=== PATIENT | female | born 1955 | race Caucasian/White ===

== ENCOUNTER 2016-09-03 18:43 | Emergency (ER) | payer BC ==
[2016-09-03 19:35] VITALS: BP 135/57
--- NOTE | 2016-09-03 20:28 | UC ---
Throat Pain/Nasal Mihai HPI - HPI Summary HPI Summary: pt reports being diagnosed with sinusitis 2 days ago and given augmentin by PCP. Pt has taken 2 doses of augmentin and reports haveing "upset stomach" after taking it. Pt reports vomiting after taking each dose. Pt also states that now she is coughing more than 2 days ago and feel s that her chest is heavy and congested. C/o PND - History of Current Complaint Chief Complaint: UCGeneralIllness Stated Complaint: SINUS/CONGESTION Time Seen by Provider: 09/03/16 20:17 Hx Obtained From: Patient ?: No Onset/Duration: Gradual Onset, Lasting Weeks Severity: Mild Cough: Nonproductive Associated Signs & Symptoms: Positive: Sinus Discomfort - Allergies/Home Medications Allergies/Adverse Reactions: Allergies Allergy/AdvReac Type Severity Reaction Status Date / Time Sulfa Antibiotics Allergy Intermediate Rash Verified 09/03/16 19:35 Home Medications: Home Medications Meclizine TAB* [Antivert 12.5 TAB*] 25 mg PO TID PRN 09/03/16 [History Confirmed 09/03/16] PMH/Surg Hx/FS Hx/Imm Hx Previously Healthy: Yes - Surgical History Surgical History: None - Family History Known Family History: Positive: Other - positive [facility] for URI - Social History Alcohol Use: Occasionally Substance Use Type: None Smoking Status (MU): Never Smoked Tobacco - Immunization History Most Recent Influenza Vaccination: none Review of Systems Constitutional: Fatigue Skin: Negative Eyes: Negative ENT: Other - nasal congestion, sinus pressure Respiratory: Cough Cardiovascular: Negative Gastrointestinal: Negative Genitourinary: Negative Motor: Negative Neurovascular: Negative Musculoskeletal: Myalgia Neurological: Negative Psychological: Negative All Other Systems Reviewed And Are Negative: Yes Physical Exam Triage Information Reviewed: Yes Appearance: Well-Appearing Vital Signs: Initial Vital Signs Temp 99.2 F 09/03/16 19:30 Pulse 71 09/03/16 19:30 Resp 17 09/03/16 19:30 BP 135/57 09/03/16 19:30 Pulse Ox 100 09/03/16 19:30 Vital Signs Reviewed: Yes Eye Exam: Normal ENT Exam: Other ENT: Positive: Nasal congestion, Other: - maxillary sinus tenderness Neck exam: Normal Respiratory Exam: Normal Cardiovascular Exam: Normal Musculoskeletal Exam: Normal Neurological Exam: Normal Psychological Exam: Normal Skin Exam: Normal Throat Pain/Nasal Course/Dx - Course Course Of Treatment: I discussed with the pt to discontinue the augmentin and begin new prescription. Pt verbalized understanding and agreed to plan of care. - Differential Dx/Diagnosis Differential Diagnosis/HQI/PQRI: Sinusitis, URI Provider Diagnoses: sinusitis. medication change Discharge - Discharge Plan Condition: Stable Disposition: HOME Prescriptions: Azithromycin TAB* [Zithromax TAB (Z-HEAVEN) 250 mg #6 tabs] 2 tab PO .TODAY, THEN 1 DAILY #1 heaven Patient Education Materials: Sinusitis (ED) Referrals: Nazanin Abdullahi MD [Primary Care Provider] - If Needed (Please follow up with your PCP or return to clinic as needed.)
== END 2016-09-03 20:39 | disposition home or self-care (01) ==
LOC: UCCORT 18:43
DX: J32.9 Chronic sinusitis, unspecified (principal); R11.10 Vomiting, unspecified; T36.0X5A Adverse effect of penicillins, initial encounter; Y92.9 Unspecified place or not applicable; Z88.2 Allergy status to sulfonamides
CPT/HCPCS: 99202; G0463